=== PATIENT | male | born 1945 | race Caucasian/White ===

== ENCOUNTER 2023-04-30 10:04 | Outpatient (CLI) | payer MEDICARE | END 2023-04-30 10:05 | disposition home or self-care (01) | LOC: CSHRAD 10:04 | PROVIDERS: ATTEND Neurological Surgery | DX: M48.061 Spinal stenosis, lumbar region without neurogenic claudication (principal); M47.816 Spondylosis without myelopathy or radiculopathy, lumbar region | CPT/HCPCS: 72120 ==

== ENCOUNTER 2023-05-18 10:07 | Outpatient (CLI) | payer MEDICARE | END 2023-05-18 10:08 | disposition home or self-care (01) | LOC: CSHMRI 10:07 | PROVIDERS: ATTEND Neurological Surgery | DX: M48.062 Spinal stenosis, lumbar region with neurogenic claudication (principal); M51.36 Other intervertebral disc degeneration, lumbar region; M47.816 Spondylosis without myelopathy or radiculopathy, lumbar region | CPT/HCPCS: 72148 ==